=== PATIENT | male | born 1985 | race Caucasian/White ===

== ENCOUNTER 2019-02-20 17:30 | Emergency (ER) | payer OTHER ==
[2019-02-20] MEDS ORDERED: NA CHLORIDE 0.9% 1,000 ML ONE ×2 (18:10→18:50)
[2019-02-20] MEDS ORDERED: PANTOPRAZOLE 40 MG INJ ONE (18:10)
[2019-02-20] MEDS ORDERED: ONDANSETRON 4 MG/2 ML VIAL ONE (18:10)
[2019-02-20 18:13] LABS: Absolute Lymphocytes (CBC) 0.7 K/uL (0.7-4.9); Absolute Monocytes 0.6 K/uL (0.1-1.3); Absolute Neutrophil 15.6 K/uL (1.8-8.0); Basophils % 0.5 % (0-1.3); Eosinophils % 0.2 % (0-4.4); Hematocrit 54.5 % (39.6-49.0); MPV 10.6 fL (7.6-11.3); Monocytes % 3.5 % (3.3-12.3); RBC Red Blood Cell Count 5.97 M/uL (4.33-5.43)
[2019-02-20] MEDS ORDERED: MORPHINE 4 MG/ML SYR ONE (18:44)
[2019-02-20] MEDS ORDERED: PROMETHAZINE 25 MG/ML VIAL ONE (18:50)
[2019-02-20 18:52] LABS: Albumin 4.4 g/dL (3.4-5.0); Bilirubin Direct 0.2 mg/dL (0-0.2); Bilirubin Total 0.8 mg/dL (0.2-1.0); Potassium 4.4 mmol/L (3.5-5.1); Protein, Total 8.7 g/dL (6.4-8.2)
[2019-02-20] MEDS ORDERED: PANTOPRAZOLE INJ 80 MG in NA CHLORIDE 0.9% 250 ML IV SCH (19:00)
[2019-02-20 19:03] LABS: Blood Morphology Comment NOT SEEN (NOT SEEN); Platelet Estimate ADEQ; Platelets, Giant PRESENT
--- NOTE | 2019-02-20 19:17 | RAD REPORT ---
EXAM DESCRIPTION: CT - Abdomen Pelvis W Contrast - 02/20/2019 6:58 pm CLINICAL HISTORY: Epigastric pain, abdominal pain, diarrhea, nausea and vomiting COMPARISON: None. TECHNIQUE: Biphasic, helical CT imaging of the abdomen and pelvis was performed following 100 ml non -ionic IV contrast. No oral contrast. All CT scans are performed using dose optimization technique as appropriate and may include automated exposure control or mA/KV adjustment according to patient size. FINDINGS: No suspicious findings in the lung bases. Liver shows fatty infiltration with no focal abnormality identified. Spleen and pancreas show no susp icious findings. Gallbladder and biliary tree are also without suspicious finding. Symmetric renal function is seen with no hydronephrosis or suspicious renal mass. No pyelonephritis o r acute parenchymal process. No bladder abnormalities. No adrenal abnormalities. Stomach is distended by fluid. No gastric wall thickening or mass. Prominent jennings of the gastric ant rum favored to be peristalsis artifact rather than antritis. Multiple prominent distended but nondila manuela small bowel loops are present. Colon is mostly decompressed. The appendix is normal. No free air, free fluid or inflammatory stranding. No mass or bulky lymphadenopathy. Bilateral fat f illed inguinal hernias are present. No suspicious bony findings. IMPRESSION: Gastric distention and multiple prominent small bowel loops. Findings are most likely g astroenteritis. Wall thickening of the gastric antrum is favored to be a peristalsis artifact rather than antritis or acute gastric antrum process. Fatty infiltration of the liver
[2019-02-20] MEDS ORDERED: PIPER/TAZO/NS 3.375gm 3.375 GM/100 ML BAG ONE (19:30)
[2019-02-20] MEDS ORDERED: METRONIDAZOLE 500mg IVPB 500 MG/100 ML BAG IV ONE (19:30)
--- NOTE | 2019-02-20 20:44 | EDPHYS ---
Physician Documentation [facility] Name: Christiano Barker Age: 33 yrs Sex: Male : 1985 Arrival Date: 02/20/2019 Time: 17:33 Bed 8 Private MD: Jadon Couch R ED Physician Noam Call HPI: 02/20 18:30 This 33 yrs old Male presents to ER via Ambulatory with complaints of kdr Abdominal Pain, Vomiting/Diarrhea. 18:30 The patient presents to the emergency department with nausea, that is moderate, that is kdr severe, vomiting, that is intermittent, diarrhea, that is intermittent, abdominal pain, of the epigastric area, right upper quadrant and left upper quadrant. Onset: The symptoms/episode began/occurred suddenly, at 05:30. Possible causes: unknown. The symptoms are aggravated by nothing. The symptoms are alleviated by nothing. Associated signs and symptoms: Pertinent positives: abdominal pain, diarrhea, GI bleeding, nausea, vomiting, Pertinent negatives: belching, constipation, dysuria, fever. Severity of symptoms: At their worst the symptoms were moderate just prior to arrival, in the emergency department the symptoms are unchanged. The patient has not experienced similar symptoms in the past. The patient has not recently seen a physician. Historical: - Allergies: 17:56 No Known Allergies; la1 - Home Meds: 17:56 None [Active]; la1 - PMHx: 17:56 None; la1 - PSHx: 17:56 Tonsillectomy; la1 - Immunization history:: Adult Immunizations up to date. - Social history:: Smoking status: Patient/guardian denies using tobacco. - Ebola Screening: : No symptoms or risks identified at this time. ROS: 18:30 Constitutional: Negative for fever, chills, and weight loss, Eyes: Negative for injury, kdr pain, redness, and discharge, ENT: Negative for injury, pain, and discharge, Neck: Negative for injury, pain, and swelling, Cardiovascular: Negative for chest pain, palpitations, and edema, Respiratory: Negative for shortness of breath, cough, wheezing, and pleuritic chest pain, Back: Negative for injury and pain, : Negative for injury, bleeding, discharge, and swelling, MS/Extremity: Negative for injury and deformity, Skin: Negative for injury, rash, and discoloration, Neuro: Negative for headache, weakness, numbness, tingling, and seizure activity. Psych: Negative for depression, anxiety, suicide ideation, homicidal ideation, and hallucinations, Allergy/Immunology: Negative for hives, rash, and allergies, Endocrine: Negative for neck swelling, polydipsia, polyuria, polyphagia, and marked weight changes, Hematologic/Lymphatic: Negative for swollen nodes, abnormal bleeding, and unusual bruising. 18:30 Abdomen/GI: Positive for abdominal pain, nausea and vomiting, nausea, vomiting, and diarrhea, abdominal cramps, hematemesis, Negative for constipation, abdominal distension, dysphagia, rectal pain, rectal bleeding, bowel incontinence. Exam: 18:30 Constitutional: This is a well developed, well nourished patient who is awake, alert, kdr and in no acute distress. Head/Face: Normocephalic, atraumatic. Eyes: Pupils equal round and reactive to light, extra-ocular motions intact. Lids and lashes normal. Conjunctiva and sclera are non-icteric and not injected. Cornea within normal limits. Periorbital areas with no swelling, redness, or edema. Neck: Trachea midline, no thyromegaly or masses palpated, and no cervical lymphadenopathy. Supple, full range of motion without nuchal rigidity, or vertebral point tenderness. No Meningismus. Chest/axilla: Normal chest wall appearance and motion. Nontender with no deformity. No lesions are appreciated. Respiratory: Lungs have equal breath sounds bilaterally, clear to auscultation and percussion. No rales, rhonchi or wheezes noted. No increased work of breathing, no retractions or nasal flaring. Back: No spinal tenderness. No costovertebral tenderness. Full range of motion. Skin: Warm, dry with normal turgor. Normal color with no rashes, no lesions, and no evidence of cellulitis. MS/ Extremity: Pulses equal, no cyanosis. Neurovascular intact. Full, normal range of motion. Neuro: Awake and alert, GCS 15, oriented to person, place, time, and situation. Cranial nerves II-XII grossly intact. Motor strength 5/5 in all extremities. Sensory grossly intact. Cerebellar exam normal. Normal gait. Psych: Awake, alert, with orientation to person, place and time. Behavior, mood, and affect are within normal limits. 18:30 Cardiovascular: Rate: tachycardic, Rhythm: regular, Pulses: no pulse deficits are appreciated, Heart sounds: normal, Edema: is not appreciated. 18:30 Abdomen/GI: Inspection: abdomen appears normal, Bowel sounds: diminished, in all quadrants, Palpation: soft, moderate abdominal tenderness, in the epigastric area, right upper quadrant and left upper quadrant, mass, is not appreciated, rebound tenderness, is not appreciated, voluntary guarding, is not appreciated, involuntary guarding, is not appreciated, tenderness to percussion, is appreciated in the epigastric area, right upper quadrant and left upper quadrant, Rectal exam: is unremarkable, Stool: guaiac positive, mass, is not appreciated, swelling, is not appreciated, tenderness, is not appreciated. Vital Signs: 17:53 BP 134 / 88; Pulse 140; Resp 16; Pulse Ox 98% on R/A; Weight 120.2 kg; Height 6 ft. 0 la1 in. (182.88 cm); Pain 6/10; 18:20 BP 141 / 98; Pulse 129; Resp 18; Pulse Ox 98% on R/A; la1 18:45 BP 145 / 74; Pulse 119; Resp 18; Temp 98.5; Pulse Ox 98% on R/A; la1 19:39 BP 138 / 89; Pulse 122; Resp 24; Pulse Ox 96% on R/A; Pain 4/10; aa1 20:26 BP 128 / 88; Pulse 113; Resp 24; Temp 98.6; Pulse Ox 96% on R/A; Pain 5/10; aa1 21:11 BP 113 / 60; Pulse 114; Resp 20; Temp 98.4; Pulse Ox 98% on R/A; Pain 5/10; aa1 17:53 Body Mass Index 35.94 (120.20 kg, 182.88 cm) la1 MDM: 18:30 Data reviewed: vital signs, nurses notes, lab test result(s), radiologic studies. kdr Counseling: I had a detailed discussion with the patient and/or guardian regarding: the historical points, exam findings, and any diagnostic results supporting the discharge/admit diagnosis, lab results, radiology results. 19:06 Patient medically screened. gs 20:38 Differential diagnosis: Nonspecific abd pain, gastritis, viral gastroenteritis, gs gastroenteritis, gi bleed, giuseppe nelson tear. Response to treatment: the patient's symptoms have mildly improved after treatment. ED course: no GI will transfer, hospitalist requires gi for admit here. 02/20 17:41 Order name: Basic Metabolic Panel; Complete Time: 19:06 kdr 02/20 17:41 Order name: CBC with Diff; Complete Time: 19:06 kdr 02/20 17:41 Order name: Creatinine for Radiology; Complete Time: 18:51 kdr 02/20 17:41 Order name: Hepatic Function; Complete Time: 19:06 kdr 02/20 17:41 Order name: Lipase; Complete Time: 19:06 kdr 02/20 18:01 Order name: Type And Screen; Complete Time: 19:06 kdr 02/20 18:09 Order name: CT Abd/Pelvis - W/Contrast; Complete Time: 19:35 kdr 02/20 19:02 Order name: Manual Differential; Complete Time: 19:06 EDMS 02/20 19:13 Order name: ABO/RH no charge; Complete Time: 19:35 EDMS 02/20 17:41 Order name: IV Saline Lock; Complete Time: 18:08 kdr 02/20 17:41 Order name: Labs collected and sent; Complete Time: 18:08 kdr Administered Medications: 18:08 Drug: ProTONIX 80 mg Route: IVP; Site: right antecubital; la1 18:47 Follow up: Response: No adverse reaction la1 18:08 Drug: NS 0.9% 1000 ml Route: IV; Rate: 1 bolus; Site: right antecubital; la1 19:05 Follow up: IV Status: Completed infusion; IV Intake: 1000ml aa1 18:09 Drug: Zofran 4 mg Route: IVP; Site: right antecubital; la1 18:46 Follow up: Response: No adverse reaction la1 18:44 Drug: ProTONIX 8 mg/hr Route: IV; Rate: 25 ml/hr; Site: right antecubital; la1 21:10 Follow up: IV Status: Infusion continued upon transfer; IV Intake: 65ml aa1 18:45 Drug: morphine 4 mg Route: IVP; Site: right antecubital; la1 18:46 Follow up: Response: No adverse reaction; Pain is decreased la1 18:45 Drug: Phenergan 12.5 mg Route: IVP; Site: right antecubital; la1 18:47 Follow up: Response: No adverse reaction la1 18:47 Drug: NS 0.9% 1000 ml Route: IV; Rate: 125 ml/hr; Site: right antecubital; la1 21:10 Follow up: IV Status: Infusion continued upon transfer; IV Intake: 300ml aa1 19:34 Not Given (Duplicate Order): Flagyl 500 mg 100 ml IVPB at 200 ml/hr once over 30 mins 19:37 Drug: Zosyn 3.375 grams Route: IVPB; Infused Over: 60 mins; Site: right antecubital; aa1 20:37 Follow up: IV Status: Completed infusion; IV Intake: 100ml aa1 Disposition: 02/20/19 20:43 Transfer ordered to [facility]. Diagnosis are Infectious gastroenteritis and colitis, unspecified, Gastrointestinal hemorrhage, unspecified. - Reason for transfer: Higher level of care. - Accepting physician is nicky. - Condition is Stable. - Problem is new. - Symptoms have improved. Signatures: Dispatcher [employer] EDCherelle Lafleur RN RN aa1 Mendoza Pride MD MD [facility] Vu Ruiz RN RN la1 Noam Call MD MD Corrections: (The following items were deleted from the chart) 21:18 20:43 02/20/2019 20:43 Transfer ordered to [facility]. Diagnosis is aa1 Infectious gastroenteritis and colitis, unspecified; Gastrointestinal hemorrhage, unspecified. Reason for transfer: Higher level of care. Accepting physician is nicky. Condition is Stable. Problem is new. Symptoms have improved. gs
--- NOTE | 2019-02-20 20:44 | ER ---
Nurse's Notes [facility] Name: Christiano Barker Age: 33 yrs Sex: Male : 1985 Arrival Date: 02/20/2019 Time: 17:33 Bed 8 Private MD: Jadon Couch R Diagnosis: Infectious gastroenteritis and colitis, unspecified;Gastrointestinal hemorrhage, unspecified Presentation: 02/20 17:54 Presenting complaint: Patient states: epigastric pain, diarrhea, nausea/vomiting, had la1 blood in vomit x 2 the most recent episodes. Transition of care: patient was not received from another setting of care. Onset of symptoms was February 20, 2019. Risk Assessment: Do you want to hurt yourself or someone else? Patient reports no desire to harm self or others. Initial Sepsis Screen: Does the patient meet any 2 criteria? No. Patient's initial sepsis screen is negative. Does the patient have a suspected source of infection? No. Patient's initial sepsis screen is negative. Care prior to arrival: None. 17:54 Method Of Arrival: Ambulatory la1 17:54 Acuity: RBET 2 la1 Historical: - Allergies: 17:56 No Known Allergies; la1 - Home Meds: 17:56 None [Active]; la1 - PMHx: 17:56 None; la1 - PSHx: 17:56 Tonsillectomy; la1 - Immunization history:: Adult Immunizations up to date. - Social history:: Smoking status: Patient/guardian denies using tobacco. - Ebola Screening: : No symptoms or risks identified at this time. Screenin:15 Abuse screen: Denies threats or abuse. Nutritional screening: No deficits noted. la1 Tuberculosis screening: No symptoms or risk factors identified. Fall Risk None identified. Assessment: 18:13 General: Appears uncomfortable, Behavior is calm, cooperative. Pain: Complains of pain la1 in abdomen Pain radiates to back Pain currently is 6 out of 10 on a pain scale. Quality of pain is described as sharp. Neuro: Level of Consciousness is awake, alert, obeys commands, Oriented to person, place, time, situation. Cardiovascular: Heart tones S1 S2 present Capillary refill < 3 seconds Patient's skin is warm and dry. Respiratory: Airway is patent Respiratory effort is even, unlabored, Respiratory pattern is regular, symmetrical, Breath sounds are clear bilaterally. GI: Abdomen is round non-distended, Bowel sounds present in right upper quadrant, left upper quadrant, right lower quadrant and left lower quadrant Abd is soft X 4 quads Abdomen is tender to palpation in epigastric area, right upper quadrant and left upper quadrant Reports nausea, vomiting, Blood in vomit x 2 with dark red the first time and bright red the second time. 19:15 Reassessment: Patient appears in no apparent distress at this time. Patient and/or aa1 family updated on plan of care and expected duration. Pain level reassessed. Patient is alert, oriented x 3, equal unlabored respirations, skin warm/dry/pink. Pt back from CT at this time. Updated on POC; denies any questions or concerns at this time. 19:55 Reassessment: Patient appears in no apparent distress at this time. Patient and/or aa1 family updated on plan of care and expected duration. Pain level reassessed. Patient is alert, oriented x 3, equal unlabored respirations, skin warm/dry/pink. Pt to be transferred; awaiting acceptance. 20:36 Reassessment: Patient appears in no apparent distress at this time. Patient and/or aa1 family updated on plan of care and expected duration. Pain level reassessed. Patient is alert, oriented x 3, equal unlabored respirations, skin warm/dry/pink. Report given to Dee Kitchen RN at [facility]. 21:11 Reassessment: Patient appears in no apparent distress at this time. Patient is alert, aa1 oriented x 3, equal unlabored respirations, skin warm/dry/pink. EMS present for transfer at this time. Vital Signs: 17:53 BP 134 / 88; Pulse 140; Resp 16; Pulse Ox 98% on R/A; Weight 120.2 kg; Height 6 ft. 0 la1 in. (182.88 cm); Pain 6/10; 18:20 BP 141 / 98; Pulse 129; Resp 18; Pulse Ox 98% on R/A; la1 18:45 BP 145 / 74; Pulse 119; Resp 18; Temp 98.5; Pulse Ox 98% on R/A; la1 19:39 BP 138 / 89; Pulse 122; Resp 24; Pulse Ox 96% on R/A; Pain 4/10; aa1 20:26 BP 128 / 88; Pulse 113; Resp 24; Temp 98.6; Pulse Ox 96% on R/A; Pain 5/10; aa1 21:11 BP 113 / 60; Pulse 114; Resp 20; Temp 98.4; Pulse Ox 98% on R/A; Pain 5/10; aa1 17:53 Body Mass Index 35.94 (120.20 kg, 182.88 cm) la1 ED Course: 17:33 Patient arrived in ED. mr 17:34 Jadon Couch MD is Private Physician. mr 17:41 Mendoza Pride MD is Attending Physician. kdr 17:53 Vu Ruiz, JUNAID is Primary Nurse. la1 17:55 Triage completed. la1 17:56 Arm band placed on left wrist. la1 18:01 T\T\S collected, blood band applied to patient. dh3 18:15 Bed in low position. Call light in reach. Side rails up X 1. Pulse ox on. NIBP on. la1 18:15 No provider procedures requiring assistance completed. Inserted saline lock: 18 gauge la1 in right antecubital area, using aseptic technique. Blood collected. 18:58 CT Abd/Pelvis - W/Contrast In Process Unspecified. EDMS 19:02 ABO no charge drawn by il and sent to lab. dh3 19:06 Attending Physician role handed off by Mendoza Pride MD gs 19:06 Noam Call MD is Attending Physician. gs 21:11 Patient transferred, IV remains in place. aa1 Administered Medications: 18:08 Drug: ProTONIX 80 mg Route: IVP; Site: right antecubital; la1 18:47 Follow up: Response: No adverse reaction la1 18:08 Drug: NS 0.9% 1000 ml Route: IV; Rate: 1 bolus; Site: right antecubital; la1 19:05 Follow up: IV Status: Completed infusion; IV Intake: 1000ml aa1 18:09 Drug: Zofran 4 mg Route: IVP; Site: right antecubital; la1 18:46 Follow up: Response: No adverse reaction la1 18:44 Drug: ProTONIX 8 mg/hr Route: IV; Rate: 25 ml/hr; Site: right antecubital; la1 21:10 Follow up: IV Status: Infusion continued upon transfer; IV Intake: 65ml aa1 18:45 Drug: morphine 4 mg Route: IVP; Site: right antecubital; la1 18:46 Follow up: Response: No adverse reaction; Pain is decreased la1 18:45 Drug: Phenergan 12.5 mg Route: IVP; Site: right antecubital; la1 18:47 Follow up: Response: No adverse reaction la1 18:47 Drug: NS 0.9% 1000 ml Route: IV; Rate: 125 ml/hr; Site: right antecubital; la1 21:10 Follow up: IV Status: Infusion continued upon transfer; IV Intake: 300ml aa1 19:34 Not Given (Duplicate Order): Flagyl 500 mg 100 ml IVPB at 200 ml/hr once over 30 mins 19:37 Drug: Zosyn 3.375 grams Route: IVPB; Infused Over: 60 mins; Site: right antecubital; aa1 20:37 Follow up: IV Status: Completed infusion; IV Intake: 100ml aa1 Intake: 19:05 IV: 1000ml; Total: 1000ml. aa1 20:37 IV: 100ml; Total: 1100ml. aa1 21:10 IV: 300ml; Total: 1400ml. aa1 21:10 IV: 65ml; Total: 1465ml. aa1 Outcome: 20:43 ER care complete, transfer ordered by . 21:11 Transferred by [facility] to [facility], Transfer aa1 form completed. 21:11 Condition: good 21:11 Instructed on the need for transfer, Demonstrated understanding of instructions. 21:18 Patient left the ED. aa1 Signatures: Dispatcher [employer] EDCherelle Lafleur RN RN aa1 Mendoza Pride MD MD kdr Rivera, Mary mr Attema, Lee, RN RN la1 Jaimie Cabrera Noam Ratliff MD MD
[2019-02-20 21:31] VITALS: BP 113/60; TEMP 98.4; O2SAT 98
== END 2019-02-20 21:18 | disposition short-term general hospital (02) ==
LOC: ER 17:30
DX: A09 Infectious gastroenteritis and colitis, unspecified (principal); K92.2 Gastrointestinal hemorrhage, unspecified
CPT/HCPCS: 36415; 74177; 80048; 80076; 83690; 85025; 86850; 86900; 86901; 96361; 96365; 96366; 96368; 96375; 99285; C9113; J2405; J2543; J2550; J7030; Q9967